=== PATIENT | female | born 1975 | race Caucasian/White ===

== ENCOUNTER 2016-10-26 23:32 | Emergency (ER) | payer MEDICAID ==
[~2016-10-26] VITALS: Ht 157.5 cm; Wt 65.5 kg
[2016-10-26 23:35] VITALS: Ht 157.5 cm; Wt 65.5 kg
--- NOTE | 2016-10-27 02:39 | ERD ---
ER Documentation Chief Complaint Date/Time DATE: 10/27/16 TIME: 02:38 Chief Complaint right ear pain x 2 days HPI This is a 41-year-old female who presents to the emergency room for evaluation of right-sided ear pain for the past 2 days. She describes her ear pain as a achy pain worse with movement of the ear and she does state that she has popping in her ear with no loss of hearing, and patient denies any trauma to that side ROS All systems reviewed and are negative except as per history of present illness. Allergies Allergies: Coded Allergies: No Known Allergy (Unverified , 10/26/16) Physical Exam Vitals Vital Signs Date Time Temp Pulse Resp B/P Pulse Ox O2 Delivery O2 Flow Rate FiO2 10/26/16 23:35 97.8 88 20 166/84 100 Physical Exam Const: No acute distress Head: Atraumatic Eyes: Normal Conjunctiva ENT: Right tympanic membrane bulging and erythematous, left tympanic membrane within normal limits, no mastoid bone tenderness normal External Ears, Nose and Mouth. Neck: Full range of motion..~ No meningismus. Resp: Clear to auscultation bilaterally Cardio: Regular rate and rhythm, no murmurs Abd: Soft, non tender, non distended. Normal bowel sounds Skin: No petechiae or rashes Back: No midline or flank tenderness Ext: No cyanosis, or edema Neur: Awake and alert Psych: Normal Mood and Affect Results 24 hrs Current Medications Medications (Trade) Dose Ordered Sig/Dameon Route PRN Reason Start Time Stop Time Status Last Admin Dose Admin Ibuprofen (Motrin) 800 mg ONCE ONCE PO 10/27/16 03:00 10/27/16 03:01 Procedures/MDM This 41-year-old female presents to the emergency room for evaluation of ear pain. The patient was found to have right-sided otitis media. She was given Motrin in the emergency room and will be discharged home at this time with a prescription for amoxicillin to take over the course of the next 7 days. Departure Diagnosis: Primary Impression: Right otitis media Condition: ROSALIA Mclaughlin DO Oct 27, 2016 02:39
[2016-10-27] MEDS ORDERED: AMO500 PO (02:40)
[2016-10-27] MEDS ORDERED: IBUP800T25 PO (02:40)
[2016-10-27] MEDS ORDERED: IBUPROFEN 800 MG TAB PO ONE (03:00)
== END 2016-10-27 02:45 | disposition home or self-care (01) ==
LOC: E/R 23:32
DX: H66.91 Otitis media, unspecified, right ear (principal)
CPT/HCPCS: Z7502; Z7610; 99283